=== PATIENT | male | born 1960 | race Caucasian/White ===

== ENCOUNTER 2025-03-23 13:52 | Outpatient (AMB) | payer OTHER, SELFPAY ==
--- NOTE | 2025-03-23 14:23 | MHC.OFFVIS ---
Vital Signs 03/23/25 14:30 Height 5 ft 8 in Weight 179 lb BMI 27.2 Intake Visit Reasons: Bilateral knee pain Intake Note: Micah is a 64 year old male who presents with complaints of progressively worsening right knee pain. He also has intermittent discomfort in his left knee. The patient states that he underwent surgery on his left knee approximately 15 years ago. He got fairly good relief from that surgery. He has not had surgery on his right knee. Most of his right knee pain is along the medial aspect of his knee. His symptoms have gotten worse over the last few months. He has not had a cortisone injection. He has tried Tylenol and anti-inflammatory medicines which gave him minimal relief. 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 Physical Exam Vital Signs: BMI result Body Mass Index 27.2 Const Other: Well-nourished well-developed very friendly male awake alert and oriented x3 in no acute distress Extrem Other: Bilateral knee examination shows minimal effusions, mild crepitus with range of motion, tenderness along his medial joint lines, positive Jeremy's test, no instability Office Procedures AMB Joint Injection/Aspiration Joint Injection/Aspiration Primary Site: right knee Prep: site was prepped using aseptic technique Injected: 40 mg of, DepoMedrol and 1% plain lidocaine Procedure: The patient tolerated the procedure well Coding 65179 - Large joint Procedure code (CPT) selection complete Results Reviewed Results Reviewed: X-rays of the patient's bilateral knee show mild diffuse joint space narrowing, no acute bony abnormalities Assessment & Plan Assessment & Plan (1) Osteoarthritis of right knee: Code(s): M17.11 - Unilateral primary osteoarthritis, right knee Category: Medical (2) Bilateral knee pain: Code(s): M25.561 - Pain in right knee; M25.562 - Pain in left knee Category: Medical Plan Mr. Perrin presents with bilateral knee pains, right greater than left, due to early degenerative joint disease as well as possible medial meniscus tearing. The risks and benefits of a right knee cortisone injection were discussed at length with the patient. The patient wished to proceed. He tolerated the injection well. At this point his left knee pain is tolerable to him. He will continue with his activity modifications. He will contact me prior to his follow-up appointment in 2-3 months should any questions or concerns arise. Feel free to call me at any time should questions regarding his orthopedic management arise. Thank you very much for asking me to see this very friendly gentleman. I spent 21 minutes in reviewing the patient's records and imaging studies, seeing the patient and documenting in the medical record. Orders: Orders XR Knee Alverto 3V Today M25.561 - Pain in right knee, M25.562 - Pain in left knee AMB Joint Injection/Aspiration Today M17.11 - Unilateral primary osteoarthritis, right knee Coding Level of Care Code New Pt Level 3 (66371) Complex EM visit Add On G2211 Diagnoses Osteoarthritis of right knee M17.11 Bilateral knee pain M25.561; M25.562 CPT Codes Coding - 16218 Large joint: 57607 - Large joint ([id number])
[2025-03-23 14:30] VITALS: BMI 27.2
--- OUTSIDE RECORDS SUMMARY | 2025-03-23 17:36 | XMS_ITS | Clinical Summary ---
Author Organization [facility] Address [address] [place] [address] Care Team Providers Care Public Services Librarian Name Role Phone Unavailable Primary Care Provider Unavailabl e Encounters Date Type Department Care Team Description 03/01/2025 Transcribe Orders [facility] Crystal Wang MD Bilateral hearing loss, unspecified hearing loss type (Primary Dx) from Last 3 Months Social History Tobacco Use Types Packs/Day Years Used Date Smoking Tobacco: Never Assessed Sex and Gender Information Value Date Recorded Sex Assigned at Not on file Legal Sex Male 3:55 PM EDT Gender Identity Not on file Sexual Orientation Not on file Plan of Treatment Health Maintenance Due Date Last Done Comments Hepatitis C Virus Screening 1961 HIV Screening 1974 DTaP/Tdap/Td Vaccines (1 - Tdap) 1980 Pneumococcal Vaccines 50+ (1 of 1 - PCV) 2011 Zoster (Shingles) Vaccine (1 of 2) 2011 COVID-19 Vaccine (1 - 2023-2 5 season) 2025 RSV Vaccine 50 years and old er and Patients (1 - 1-dose 75+ series) 2036 Hepatitis B Vaccines Aged Out No long er eligible based on patient's age to complete this topic
== END 2025-03-23 15:03 | disposition home or self-care (01) ==
LOC: HO.HOS 13:52
PROVIDERS: Visit Provider Orthopaedic Surgery
DX: M17.11 Unilateral primary osteoarthritis, right knee (principal); M25.561 Pain in right knee; M25.562 Pain in left knee
CPT/HCPCS: 20610; 99203

== ENCOUNTER 2025-03-23 13:52 | Outpatient (REF) | payer OTHER, SELFPAY ==
--- NOTE | ~2025-03-23 | XR_ITS ---
EXAMINATION: XR KNEE BILATERAL 3 VIEW KNEE CLINICAL INFORMATION: Bilateral knee pain COMPARISON: None available. TECHNIQUE: AP bilateral standing lateral and sunrise view of the knees was obtained. FINDINGS: Right: Bone alignment is normal. No fracture or dislocation. Mild arthritis at the medial femoral tibial and patellofemoral joints with joint space narrowing and small osteophytes. No joint effusion. Normal soft tissues. Left: Bone alignment is normal. Mild arthritis at the patellofemoral joint with small osteophytes. Joint spaces otherwise normal. No joint effusion. Normal soft tissues. XR/XR Knee Alverto 3V IMPRESSION: Mild bilateral knee arthritis, right greater than left. Electronically signed by: Doreen Beyer MD 03/23/2025 02:54 PM EDT
--- OUTSIDE RECORDS SUMMARY | 2025-03-23 17:43 | XMS_ITS ---
Author Name [facility] Organization Unknown Problems Problem Status Onset Date Problem Type Date of Resoluti on Source Bilateral hearing loss, unspecified hearing loss type active [facility]
== END 2025-03-23 13:53 | disposition home or self-care (01) ==
LOC: HO.HOSX 13:52
PROVIDERS: Visit Provider Orthopaedic Surgery
DX: M17.11 Unilateral primary osteoarthritis, right knee (principal); M25.562 Pain in left knee
CPT/HCPCS: 20610; 73562; J1010; J2003

== ENCOUNTER → 2025-03-23 14:07 | Outpatient (BNV) | payer OTHER, SELFPAY | PROVIDERS: Visit Provider Radiology Diagnostic Radiology | DX: M17.0 Bilateral primary osteoarthritis of knee (principal) | CPT/HCPCS: 73562 ==